=== PATIENT | female | born 1950 | race Caucasian/White ===

== ENCOUNTER 2019-04-23 11:23 | Inpatient (IN) | payer OTHER ==
--- NOTE | 2019-04-23 11:29 | ED ---
HPI Cardiac - HPI Summary HPI Summary: STEMI called overhead at 11:08, ETA 25 minutes. This pt is a 68 y/o female presenting to [facility] via EMS for a possible STEMI. Pt reports she has had chest pain since 2 days ago (04/21/19). She states chest pain is still present today and it has worsened. Pt currently rates her pain 4/ 10 in severity. STEMI was called from field. PMHx includes aortic valve "doesn't close." - History of Current Complaint Stated Complaint: POSSIBLE STEMI Hx Obtained From: Patient Hx Last Menstrual Period: age 36 Onset/Duration: Started Days Ago - 2, Still Present Timing: Lasting Days - 2 Current Severity: Moderate Pain Intensity: 4 Pain Scale Used: 0-10 Numeric Chest Pain Location: Diffuse Chest Pain Radiates: No Aggravating Factor(s): Nothing Alleviating Factor(s): Nothing Associated Signs and Symptoms: Positive: Chest Pain. Negative: Shortness of Breath, Fever, Chills - Allergy/Home Medications Allergies/Adverse Reactions: Allergies Allergy/AdvReac Type Severity Reaction Status Date / Time MS Cefaclor [From Ceclor] Allergy Intermediate Hives Verified 06/10/15 11:46 MS Erythromycin Allergy Intermediate Hives Verified 06/10/15 11:46 [Erythromycin] MS Penicillins [Penicillins] Allergy Intermediate Hives Verified 06/10/15 11:46 MS Sodium [Sodium] Allergy Intermediate Hives Verified 06/10/15 11:46 MS Tetracyclines & Related Allergy Hives Verified 06/10/15 11:46 [Tetracyclines & Related] Home Medications: Home Medications Albuterol HFA INHALER* [Ventolin HFA Inhaler*] 2 puff INH Q4H PRN 04/23/19 [ History Confirmed 04/23/19] Albuterol/Ipratropium NEB.NICOLE* [Duoneb (Albuterol 2.5 MG/Ipratropium 0.5 MG)] 1 neb INH Q6H PRN 04/23/19 [History Confirmed 04/23/19] Aspirin EC TAB* [Ecotrin EC Low Dose 81 MG*] 81 mg PO DAILY 04/23/19 [History Confirmed 04/23/19] Diclofenac Sodium EC TAB* [Voltaren EC TAB*] 75 mg PO BID 04/23/19 [History Confirmed 04/23/19] Dulaglutide (NF) [Trulicity (NF)] 0.75 mg SUBCUT WEEKLY 04/23/19 [History Confirmed 04/23/19] Fluticasone NASAL SPRAY 50MCG* [Flonase NASAL SPRAY 50MCG*] 2 spray BOTH NARES DAILY 04/23/19 [History Confirmed 04/23/19] Levofloxacin TAB* [Levaquin TAB*] 500 mg PO DAILY 04/23/19 [History Confirmed ] LoraTADine TAB(NF) [Claritin 10 MG TAB(NF)] 10 mg PO DAILY 04/23/19 [History Confirmed 04/23/19] Melatonin 10 mg PO BEDTIME 04/23/19 [History Confirmed 04/23/19] Pantoprazole TAB * [Protonix TAB*] 40 mg PO DAILY 04/23/19 [History Confirmed ] traMADol TAB* [Ultram*] 25 - 50 mg PO Q6HR PRN 04/23/19 [History Confirmed 04/23] PMH/Surg Hx/FS Hx/Imm Hx Endocrine/Hematology History: Reports: Hx Diabetes Cardiovascular History: Reports: Hx Hypertension, Other Cardiovascular Problems/ Disorders - AORTIC VALVE PROBLEM Respiratory History: Reports: Hx Chronic Obstructive Pulmonary Disease (COPD) - Surgical History Surgery Procedure, Year, and Place: R knee x2, tubal, gallbladder - Family History Known Family History: Positive: Cardiac Disease Family History: Asthma. Polio. - Social History Alcohol Use: None Substance Use Type: Reports: None Smoking Status (MU): Light Every Day Tobacco Smoker Type: Cigarettes Amount Used/How Often: 1/2 pack Length of Time of Smoking/Using Tobacco: 54 Years Have You Smoked in the Last Year: Yes Review of Systems Negative: Fever, Chills Negative: Erythema Negative: Sore Throat Positive: Chest Pain Negative: Shortness Of Breath, Cough Negative: Abdominal Pain, Vomiting, Nausea Negative: dysuria, hematuria Negative: Myalgia, Edema Negative: Rash Neurological: Other - NEGATIVE: dizziness All Other Systems Reviewed And Are Negative: Yes Physical Exam - Summary Physical Exam Summary: Constitutional: Well-developed, Well-nourished, Alert. (-) Distressed Skin: Warm, Dry HENT: Normocephalic; Atraumatic Eyes: Conjunctiva normal Neck: Musculoskeletal ROM normal neck. (-) JVD, (-) Stridor, (-) Tracheal deviation Cardio: Rhythm regular, rate normal, Heart sounds normal; Intact distal pulses; The pedal pulses are 2+ and symmetric. Radial pulses are 2+ and symmetric. (-) Murmur Pulmonary/Chest wall: Effort normal. (-) Respiratory distress, (-) Wheezes, (-) Rales. (+) Mild crackles in the bases. Abd: Soft, (-) Tenderness, (-) Distension, (-) Guarding, (-) Rebound Musculoskeletal: (-) Edema Lymph: (-) Cervical adenopathy Neuro: Alert, Oriented x3 Psych: Mood and affect Normal Triage Information Reviewed: Yes Vital Signs Reviewed: Yes Diagnostics - Laboratory Result Diagrams: 04/23/19 11:30 Lab Statement: Any lab studies that have been ordered have been reviewed, and results considered in the medical decision making process. Disposition - Course Assessment/Plan: Pt is a 68 y/o female presenting to [facility] via EMS for a possible STEMI. Pt reports she has had chest pain since 2 days ago (04/21/19). She states chest pain is still present today and worsening. Pt currently rates her pain 4/10 in severity. STEMI was called from field. Dr. Frost and Dr. Alvarez immediately at beside upon arrival at 11:23. EKG strip from EMS shows positive inferior wall W[place]. Patient is going straight to the distillery laborer without being placed in the ED room. ED bypass. Patient does not qualify for critical care time, patient has been in the ED for less than 30 minutes. - Diagnoses Provider Diagnoses: STEMI (ST elevation myocardial infarction) During the Visit The Following Alert/Code Occurred: STEMI - overhead at 11:08, ETA 25 minutes. Discharge - Sign-Out/Discharge Documenting (check all that apply): Patient Departure - Patient straight to distillery laborer All imaging exams completed and their final reports reviewed: No Studies Patient Received Moderate/Deep Sedation with Procedure: No - Discharge Plan Condition: Stable Disposition: ADMITTED TO [facility] - Attestation Statements Document Initiated by Scribe: Yes Documenting Scribe: Nithya Elizabeth Provider For Whom Scribe is Documenting (Include Credential): Jerad Alvarez MD Scribe Attestation: Nithya Child, scribed for Jerad Alvarez MD on 04/23/19 at 1207. Status of Scribe Document: Ready
[2019-04-23] MEDS ORDERED: Heparin(*) 1000 UNIT/ML 10 ML VIAL CATH LAB IV ONE ×2 (11:32→11:34)
[2019-04-23] MEDS ORDERED: Iohexol 350 (CONTRAST) 200 ML MDV IV ONE ×2 (11:34→12:20)
[2019-04-23] MEDS ORDERED: VERAPAMIL 2.5 MG/ML 2 ML VIAL ** 5 mg/2 ml ONE (11:34)
[2019-04-23] MEDS ORDERED: Midazolam* 1 MG/ML 5 ML VIAL (5 MG) ONE (11:34)
[2019-04-23] MEDS ORDERED: fentaNYL* 50 MCG/ML 2 ML VIAL (100 MCG VIAL) ONE (11:34)
[2019-04-23] MEDS ORDERED: nitroGLYCERIN DRIP* 25,000 MCG/250 ML BTL ONE (11:34)
[2019-04-23] MEDS ORDERED: Lidocaine 1% INJ* 10 MG/ML 30 ML SDV ONE (11:34)
[2019-04-23] MEDS ORDERED: Ticagrelor* 90 MG TAB PO ONE (11:37)
[2019-04-23 11:56] LABS: Hematocrit 43 % (35-47); Hemoglobin 14.5 g/dL (12.0-16.0); Mean Corpuscular HGB Conc 34 g/dL (31-36); Mean Corpuscular Hemoglobin 30 pg (27-31); Mean Corpuscular Volume 90 fL (80-97); Mean Platelet Volume 10.5 fL (7.4-10.4); Platelet Count 240 10^3/uL (150-450); Red Blood Count 4.84 10^6 /uL (3.70-4.87); Red Cell Distribution Width 14 % (10-15); White Blood Count 18.5 10^3/uL (3.5-10.8)
[2019-04-23 12:04] LABS: Activated Partial Thrombo Time 34.1 seconds (26.0-38.0); INR 1.04 (0.82-1.09)
[2019-04-23 12:23] LABS: Albumin 3.8 g/dL (3.2-5.2); Albumin/Globulin Ratio 1.4 (1-3); BUN/Creatinine Ratio 20.8 (8-20); EGFR African American 90.2 (>60); EGFR Non-African American 74.5 (>60); Globulin 2.8 g/dL (2-4); Potassium 4.2 mmol/L (3.5-5.0); Total Bilirubin 0.5 mg/dL (0.2-1.0); Total Protein 6.6 g/dL (6.4-8.9)
[2019-04-23 12:25] LABS: Myoglobin 84.8 ng/mL (14.3-65.8)
[2019-04-23 12:26] LABS: CKMB ng/mL 76.1 ng/mL (0.6-6.3)
[2019-04-23 12:35] LABS: ABS Basophils 0.1 10^3/ul (0-0.2); ABS Eosinophils 0.2 10^3/ul (0-0.6); ABS Lymphocytes 2.2 10^3/ul (1.0-4.8); ABS Monocytes 1.7 10^3/ul (0-0.8); ABS Neutrophils 14.4 10^3/ul (1.5-7.7); Eosinophil % 1.1 %; Lymphocyte % 11.6 %
[2019-04-23 12:44] LABS: Troponin I 13.32 ng/mL (<0.04)
[2019-04-23] MEDS: NS 0.9% 1000 ML** 1,000 ML IV SCH ×2 (12:50→18:26)
[2019-04-23] MEDS ORDERED: Nitroglycerin TAB 0.4 MG* 0.4 MG TAB SL PRN (12:56)
[2019-04-23] MEDS: Metoprolol Tartrate TAB* 25 MG PO SCH ×3 (14:04→23:17)
[2019-04-23] MEDS: Atorvastatin* 80 MG TAB PO ONE ×2 (14:04→14:07)
--- NOTE | 2019-04-23 14:38 | HP ---
CC: MELISSA Espinoza, [facility], [place], [place] * CC: Ellie Vilchis MD, [facility].* ADMISSION HISTORY AND PHYSICAL: DATE OF ADMISSION: 04/23/19 CHIEF COMPLAINT: The patient with chest discomfort since last evening. HISTORY OF PRESENT ILLNESS: The patient is a 68-year-old female with no prior known history of coronary artery disease. Over the past several days, she has had chest tightness sensation radiating to her left shoulder. She has had some nauseousness without significant diaphoresis. She had shortness of breath, which she has chronically from her underlying severe chronic obstructive lung disease. She states in general, her symptoms seemed to be worse in the evening hours, but last night it again came on and worsened again. This morning, it was still present and she ended up calling the EMS. EMS presented and found on EKG of the patient to have ST-segment elevation in the inferior leads. There were already some Q waves formed, but still preserved R-waves present. There was mild ST segment depression in I and aVL and the early precordial leads. A STEMI alert was called. She was brought to [facility] and I saw her as a potential STEMI ER bypass situation. She was still having active symptoms , but her hemodynamics were stable. I examined her and reviewed the risks and benefits with her cardiac catheterization. She understood and wished to proceed. Basic cardiac risk factors that were able to obtained by her included a history of hypertension, hyperlipidemia, and a smoking history . There was reportedly a family history of a father who had heart attack young in life. PAST MEDICAL HISTORY: As above, including COPD SOCIAL HISTORY: The patient is an active cigarette smoker. REVIEW OF SYSTEMS: Pertinent to proceeding to the cardiovascular laboratory - the patient denied any history of prior stroke or TIA. She denied any history of kidney disease that she knew about. She denied any history of dye allergy and she denied any history of hematochezia, hematemesis, or hematuria. FAMILY HISTORY: Pertinent for father history of CAD as above. PHYSICAL EXAMINATION GENERAL: When I saw her in the emergency room revealed the patient still with a [id number] chest discomfort that seemed to be somewhat better since she got nitroglycerin by the paramedics. NECK: Supple. I could not appreciate definitive increased JVP. LUNGS: Chest had decreased breath sounds bilaterally, marked in nature, with the question of a minimal wheeze. HEART: Regular rate and rhythm. In the emergency room, it was difficult to auscultate for a significant murmur. As such a murmur could not be ruled out. A question of a soft systolic murmur was noted. ABDOMEN: Soft and nontender. EXTREMITIES: Without cyanosis or significant pitting edema. Peripheral pulses were intact. The right radial artery pulse was present as well. NEURO: The patient is alert and oriented with normal mentation. MUSCULOSKELETAL: The patient moves all extremities appropriate. PSYCHOLOGICAL: The patient with appropriate affect for her current condition. DIAGNOSTIC STUDIES/LAB DATA: Electrocardiogram from the emergency room revealed sinus rhythm. Pulse rate in the 90s. There are mild ST segment elevations in 2, 3, aVF that do meet criteria for a ST elevation myocardial infarction with Q waves already developed, but still preserved R waves noted with mild ST segment depression in 1, aVL, and V2 and V3. Laboratory results pending at this point. OVERALL ASSESSMENT: Ms. Paris presents in the throes of a probably late presentation inferior and posterior wall myocardial infarction with continued ongoing symptoms at this point in time. Given the fact that she has preserved R waves still to some degree and ongoing symptoms, we will proceed to the cardiovascular laboratory. I explained at length the risks and benefits to her , she understood them and wished to proceed. The patient will receive 4000 units of heparin immediately on presentation to the rn cardiac cath in addition to 180 mg of Brilinta. She has already received aspirin therapy. Further management will be made pending the results of the cardiac catheterization. [id number]/CPS #: [id number] MTDD
[2019-04-23] MEDS ORDERED: NF:Dulaglutide (NF) 0.75 MG/0.5 ML SYRINGE SUBCUT SCH (16:00)
[2019-04-23 17:05] LABS: Urine Appearance Cloudy; Urine Bilirubin Negative (Negative); Urine Blood Negative (Negative); Urine Color Yellow; Urine Glucose 3+(>=500 mg/dL) (Negative); Urine Ketones 1+ (Negative); Urine Nitrite Negative (Negative); Urine Protein Negative (Negative); Urine Urobilinogen Negative (Negative)
[2019-04-23 17:43] LABS: Creatine Kinase 882 U/L (10-223)
[2019-04-23 17:47] LABS: Troponin I 44.95 ng/mL (<0.04)
[2019-04-23 17:48] LABS: CKMB ng/mL 75.7 ng/mL (0.6-6.3)
[2019-04-23] MEDS ORDERED: NS 0.9% 250 ML* 250 ML IV ONE (18:00)
[2019-04-23] MEDS: Ticagrelor* 90 MG TAB PO SCH (21:04)
[2019-04-23 23:55] LABS: Creatine Kinase 576 U/L (10-223)
[2019-04-24 00:09] LABS: Troponin I 31.15 ng/mL (<0.04)
[2019-04-24 06:08] LABS: Hematocrit 40 % (35-47); Hemoglobin 13.4 g/dL (12.0-16.0); Mean Corpuscular HGB Conc 33 g/dL (31-36); Mean Corpuscular Hemoglobin 30 pg (27-31); Mean Corpuscular Volume 90 fL (80-97); Red Blood Count 4.45 10^6 /uL (3.70-4.87); Red Cell Distribution Width 14 % (10-15); White Blood Count 17.6 10^3/uL (3.5-10.8)
[2019-04-24 06:20] LABS: ALT 16 U/L (7-52); AST 55 U/L (13-39); Albumin 3.7 g/dL (3.2-5.2); Albumin/Globulin Ratio 1.2 (1-3); Alkaline Phosphatase 76 U/L (34-104); Anion Gap 8 mmol/L (2-11); BUN/Creatinine Ratio 20.5 (8-20); Blood Urea Nitrogen 15 mg/dL (6-24); CO2 Carbon Dioxide 24 mmol/L (22-32); Calcium 8.8 mg/dL (8.6-10.3); Chloride 104 mmol/L (101-111); Cholesterol 123 mg/dL; Creatine Kinase 433 U/L (10-223); EGFR African American 95.9 (>60); EGFR Non-African American 79.3 (>60); Globulin 3.1 g/dL (2-4); Glucose 133 mg/dL (70-100); HDL Cholesterol 32.3 mg/dL; LDL Cholesterol 52 mg/dL; Potassium 3.6 mmol/L (3.5-5.0); Sodium 136 mmol/L (135-145); Total Protein 6.8 g/dL (6.4-8.9); Triglycerides 196 mg/dL
[2019-04-24 06:26] LABS: CKMB ng/mL 23.7 ng/mL (0.6-6.3)
[2019-04-24 06:30] LABS: Troponin I 19.05 ng/mL (<0.04)
[2019-04-24 06:58] LABS: ABS Basophils 0.1 10^3/ul (0-0.2); ABS Eosinophils 0.3 10^3/ul (0-0.6); ABS Lymphocytes 4.1 10^3/ul (1.0-4.8); ABS Monocytes 1.9 10^3/ul (0-0.8); ABS Neutrophils 11.2 10^3/ul (1.5-7.7); Eosinophil % 1.5 %; Lymphocyte % 23.5 %; Nucleated Red Blood Cells % 0.1
[2019-04-24 07:03] LABS: Mean Platelet Volume 10.1 fL (7.4-10.4); Platelet Count 237 10^3/uL (150-450)
[2019-04-24] MEDS ORDERED: Perflutren Lipid Microsphere* 3 ML VIAL ONE (07:48)
[2019-04-24] MEDS ORDERED: LORATADINE 10 MG PO SCH (09:00)
[2019-04-24] MEDS ORDERED: PTO:Dulaglutide (NF) 0.75 MG/0.5 ML SYRINGE SUBCUT SCH (09:00)
[2019-04-24] MEDS: Fluticasone NASAL SPRAY 50MCG* 16 gm SPRAY BTL BOTH NARES SCH (09:10)
[2019-04-24] MEDS: Aspirin 81 mg CHEW TAB* 81 MG TAB.CHEW PO SCH (09:10)
[2019-04-24] MEDS: Metoprolol Succinate XL TAB* 25 MG PO SCH (09:10)
[2019-04-24] MEDS: Ticagrelor* 90 MG TAB PO SCH ×2 (09:10→21:01)
[2019-04-24] MEDS: Cetirizine* 10 MG TAB PO SCH (09:10)
[2019-04-24] MEDS: Pantoprazole TAB * 40 MG TAB PO SCH (09:11)
--- NOTE | 2019-04-24 10:43 | ECHO ---
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 History: Aortic regurgitation. Risk factors: Current tobacco use. Hypertension. Dyslipidemia. Labs, prior tests, procedures, and surgery: Catheterization (04/23/2019). There was a stenosis which was treated with a stent. Conclusions Summary: 1. Left ventricle: The cavity size is normal. Wall thickness is mildly increased. Systolic function is at the lower limits of normal. The estimated ejection fraction is 45-50%. Hypokinesis of the inferior myocardium. Hypokinesis of posterior myocardium. 2. Regional wall motion abnormality: Severe hypokinesis of the apical inferior myocardium; mild hypokinesis of the mid inferior and mid inferolateral myocardium. 3. Right ventricle: Systolic function is normal. 4. Mitral valve: There is mild regurgitation. 5. Aortic valve: There is mild regurgitation. 6. Tricuspid valve: There is trivial regurgitation. 7. Pericardium, extracardiac: There is no significant pericardial effusion. 8. Compared to study of 04/25/18, the inferior wall motion abnormalitiy is new. Study data: Transthoracic echocardiogram. Procedure: Transthoracic echocardiography was performed. Image quality was adequate. Intravenous Definity , 2 mlswas administered. Image enhancement administered by Selma Dean RN. Complete 2D, spectral Doppler, and color flow Doppler. Location: ICU Patient status: Inpatient. Patient room number: 5. Rhythm: Normal sinus rhythm. Findings Left ventricle: The cavity size is normal. Wall thickness is mildly increased. Systolic function is at the lower limits of normal. The estimated ejection fraction is 45-50%. Regional wall motion abnormalities: Hypokinesis of the inferior myocardium. Hypokinesis of posterior myocardium. Severe hypokinesis of the apical inferior myocardium; mild hypokinesis of the mid inferior and mid inferolateral myocardium. There is no consistent Doppler evidence of clinically significant diastolic dysfunction. Right ventricle: The cavity size is normal. Systolic function is normal. Left atrium: The atrium is normal in size. Right atrium: The atrium is normal in size. Mitral valve: The annulus is mildly calcified. The leaflets are normal thickness. There is no evidence of stenosis. There is mild regurgitation. Aortic valve: The valve is probably trileaflet. The leaflets are normal thickness. There is no evidence of stenosis. There is mild regurgitation. Tricuspid valve: The leaflets are normal thickness. There is no evidence of stenosis. There is trivial regurgitation. Pulmonic valve: Not well visualized. There is no significant regurgitation. Aorta: The aortic root is not dilated. Pericardium: There is no significant pericardial effusion. Pulmonary arteries: Not well visualized. Systolic pressure can not be accurately estimated. Systemic veins: Inferior vena cava: The vessel is normal in size. The respirophasic diameter changes are blunted (< 50%). Measurements Left ventricle Value Ref Aortic valve continued Value Ref ASTER, LAX 4.1 cm 3.8 - 5.2 Peak grad, S 11.0 mm Hg ---- ESD, LAX (H) 3.6 cm 2.2 - 3.5 AR peak v 3.22 m/sec ---- FS, LAX (L) 11 % 27 - 45 AR PHT 500 ms ---- PW, ED, LAX (H) 1.1 cm 0.6 - 0.9 AR peak grad 41 mm Hg ---- EF (L) 25 % 54 - 74 E', lat jones, TDI (L) 5.9 cm/sec >=10.0 Mitral valve Value Re f E/e', lat jones, 15 Peak E 0.91 m/sec ---- TDI Peak A 1.18 m/sec ---- E', med jones, TDI (L) 6.3 cm/sec >=7.0 Decel time 156 ms -- -- E/e', med jones, 14 PHT 72 ms ---- TDI Mean grad, D 3.0 mm Hg ---- E', avg, TDI 6.1 cm/sec Peak grad, D 8.0 mm Hg ---- E/e', avg, TDI (H) 15 <=14 Peak E/A ratio 0.8 -- -- MVA, PHT 3.1 cm^2 ---- LVOT Value Ref Peak carloz, S 0.92 m/sec Pulmonic valve Value Ref Mean grad, S 2 mm Hg Peak v, S 0.69 m/sec ---- Peak grad, S 2.0 mm Hg ---- Ventricular septum Value Ref IVS, ED (H) 1.2 cm 0.6 - 0.9 Aortic root Value Ref Root diam 2.8 cm <3.9 Right ventricle Value Ref ASTER, LAX 2.6 cm Ascending aorta Value Ref ASTER minor ax, A4C 1.9 cm 1.9 - 3.5 AAo AP diam, S 2.7 cm ---- mid Aortic arch Value Ref Left atrium Value Ref Arch diam 2.6 cm ---- AP dim, ES 2.90 cm 2.70 - 3.80 Decending aorta Value Ref ML dim, A4C 3.8 cm Kelley peak carloz 0.65 m/sec ---- SI dim, A4C 4.3 cm Vol/bsa, ES, A/L 29 ml/m^2 16 - 34 Inferior vena cava Value Ref Diam 1.9 cm ---- Right atrium Value Ref SI dim, ES 4.1 cm 3.4 - 5.3 Pulmonary veins Value Ref ML dim, ES, A4C (L) 2.5 cm 2.6 - 4.4 Peak v, S 0.5 m/sec ---- Estimated RAP 3 mm Hg Peak v, D 0.33 m/sec ---- Peak S/D ratio 1.5 ---- Aortic valve Value Ref A rev duration 114 ms ---- Jones diam, ED 2.2 cm Peak v, S 1.64 m/sec VTI, S 31.1 cm Mean grad, S 5.0 mm Hg Legend: (L) and (H) nael values outside specified reference range. Prepared and electronically signed by Tuan Sanchez MD 04/24/2019 10:43
--- NOTE | 2019-04-24 15:18 | CATH ---
CC: MELISSA Espinoza, [facility] [place], [place]; Ellie Vilchis MD, [facility]* CARDIAC CATHETERIZATION REPORT: DATE OF PROCEDURE: 04/23/19 - Inpatient, room 432-01. REASON FOR THE CARDIAC CATHETERIZATION: The patient presents with a late presentation inferoposterior wall ST elevation myocardial infarction with ongoing symptoms. PROCEDURE: Coronary arteriography, intervention into distal circumflex with thrombectomy and placement of a 2.5 x 18 mm long Orsiro Sirolimus drug-eluting stent post dilated to 2.85 mm, left heart catheterization, left ventriculography. CONSENT: The patient was interviewed and examined in the emergency room where the risks and benefits were explained. She understood them and wished to proceed. APPROACH ATTEMPTED: The right radial artery was assessed in the catheterization laboratory and found to be of an appropriate size for approach and as such this was the approach utilized. PRECARDIAC CATHETERIZATION LABORATORY RESULTS: Pending at the time of start of the case. EQUIPMENT UTILIZED: 1. Right radial artery sheath was a 6-Faroese Glidesheath Slender. 2. Diagnostic coronary catheter was a 5-Faroese TIG4 catheter. 3. The exchange diagnostic guidewire was a Joy curved 260-cm length guidewire. 4. The guiding catheter was a VL 3.5 curved 6-Faroese Runway guide catheter. 5. The thrombectomy device utilized: A Pronto V3 extraction catheter 6-Faroese. 6. The post stent deployment dilatation balloon catheter was a NC Emerge 2.75 x 8 mm long catheter. 7. Interventional guidewire utilized was a 300 cm length AllStar guidewire. 8. Left heart catheterization catheter was a 5-Faroese TIG short radial catheter. MEDICATIONS: Medications given in the lab assistant: 5000 units of heparin, 180 mg of Brilinta orally. The patient had already received 325 mg of aspirin. She received a radial artery cocktail with 300 mcg of nitroglycerin, 3 mg of verapamil. The patient received 0.5 mg of Versed and also intracoronary nitroglycerin. DESCRIPTION OF PROCEDURE: The patient was brought to the cardiac catheterization lab doing an ED bypass. A formal time-out was performed. She was prepped and draped in sterile fashion, and under ultrasound guidance, the right radial artery was cannulated and the sheath was placed. Coronary arteriography was performed and the decision was then made to intervene in the totally occluded mid to distal circumflex artery. Thrombectomy was performed followed by stent deployment and post deployment dilatations utilizing the catheters described above. Following this, a left heart catheterization was performed and left ventriculography was performed utilizing a total of 24 cc of Omnipaque dye at a rate of 12 cc per second. The total contrast used was 165 cc of Omnipaque dye. The radiation exposure included 9.7 minutes of fluoro time. The air kerma was 881 mGy. The DAP radiation was 5416 microgray/m2. RESULTS: HEMODYNAMIC DATA: Left heart catheterization - revealed central aortic pressure 108/61 with mean 83. Left ventricular pressure 109 over left ventricular end diastolic pressure of 19. LEFT VENTRICULOGRAPHY: Performed in the ENRIQUEZ projection reveals severe hypokinesis of the mid toward apical inferior wall with preservation of the apex, the anterior wall and the proximal inferior wall. Overall ejection fraction is estimated at 40% to 45%. CORONARY ARTERIOGRAPHY: A. Left coronary artery: 1. Left main - virtual separate ostium for the LAD and circumflex with a very short left main. 2. Left anterior descending artery. The proximal portion of the left anterior descending artery had an eccentric lesion, which appeared to have a narrowing of 35% to 40%. The mid portion of left anterior descending artery had a narrowing of 55% to 60% noted. The left anterior descending artery traversed to the apical region and minimally on to the distal inferior wall. Of note, collateralization was seen filling retrograde to a low lying bifurcating obtuse marginal branch. The LAD supplied multiple diagonal branches that were somewhat small in caliber but no focal critical stenosis seen. 3. Circumflex artery - a nondominant vessel supplying a high first obtuse marginal branch. This was followed by a second thin obtuse marginal branch. A third and fourth obtuse marginal branch was noted and at the origin of the third obtuse marginal branch, there was a total occlusion of the circumflex artery. There was already ostial narrowing of this small caliber fourth obtuse marginal branch. B. Right coronary artery: The right coronary artery is a dominant vessel supplying the PDA and very small thread like posterior left ventricular branch. There is diffuse disease seen throughout the proximal and mid portion with areas of luminal reduction as much as 40% to 45%. The right coronary artery had multiple acute marginal branches with 2 mid acute marginal branches, which supplied part of the inferior wall. Of note, just prior to the PDA was a 45% narrowing, in caliber the vessel equal to the size of the PDA itself which was a small caliber vessel. INTERVENTION INTO TOTALLY OCCLUDED MID TO DISTAL CIRCUMFLEX: Successful thrombectomy and placement of a 2.5 x 18 mm long drug-eluting stent post dilated to 2.85 mm with SHANELLE 3 flow. No dissection seen and 5% to 10 % narrowing residual stenosis left. Of note, there was compromise to the ostium of the fourth obtuse marginal branch but SHANELLE 3 flow was noted throughout this vessel. The caliber was clearly less than 2 mm of this vessel. Once opened, the continuation of the circumflex supplied a trifurcating low lying obtuse marginal branch supplying the inferior to inferior low posterior apical region. OVERALL ASSESSMENT: Successful intervention into totally occluded mid to distal circumflex with placement of drug-eluting stent as described. Moderate disease elsewhere without critical stenosis present. Medical management will be pursued with dual antiplatelet therapy, statin therapy in addition to aggressive recommendations toward complete smoking cessation in order to avoid compromise to her coronary vessels. Further ongoing cardiac evaluation will be through the patient's primary bulk folder, Dr. Darlyn [place] in [place], [place]. [id number] #: [id number] MTDRonnell
[2019-04-24] MEDS: CMCS: Simvastatin TAB(NF) 20 MG TAB PO SCH (17:12)
[2019-04-25 05:45] LABS: BUN/Creatinine Ratio 23.6 (8-20); Calcium 9.2 mg/dL (8.6-10.3); EGFR African American 97.5 (>60); EGFR Non-African American 80.6 (>60); Potassium 3.8 mmol/L (3.5-5.0)
[2019-04-25] MEDS: Cetirizine* 10 MG TAB PO SCH (07:22)
[2019-04-25] MEDS: Pantoprazole TAB * 40 MG TAB PO SCH (07:22)
[2019-04-25] MEDS: Aspirin 81 mg CHEW TAB* 81 MG TAB.CHEW PO SCH (07:22)
[2019-04-25] MEDS: Fluticasone NASAL SPRAY 50MCG* 16 gm SPRAY BTL BOTH NARES SCH (07:23)
[2019-04-25] MEDS: PTO:DAPAGLIFLOZIN 10 MG TAB (NF) PO SCH (07:23)
[2019-04-25] MEDS: Ticagrelor* 90 MG TAB PO SCH ×2 (07:23→20:48)
[2019-04-25] MEDS: Metoprolol Succinate XL TAB* 25 MG PO SCH (07:23)
[2019-04-25] MEDS: Enoxaparin(*) 30 MG/0.3 ML SYR SUBCUT SCH (09:42)
[2019-04-25] MEDS: CMCS: Simvastatin TAB(NF) 20 MG TAB PO SCH (17:23)
[2019-04-26 07:45] VITALS: BP 109/62
[2019-04-26] MEDS: Metoprolol Succinate XL TAB* 25 MG PO SCH (07:52)
[2019-04-26] MEDS: Enoxaparin(*) 30 MG/0.3 ML SYR SUBCUT SCH (07:52)
[2019-04-26] MEDS: Aspirin 81 mg CHEW TAB* 81 MG TAB.CHEW PO SCH (07:52)
[2019-04-26] MEDS: Pantoprazole TAB * 40 MG TAB PO SCH (07:52)
[2019-04-26] MEDS: Cetirizine* 10 MG TAB PO SCH (07:52)
[2019-04-26] MEDS: Fluticasone NASAL SPRAY 50MCG* 16 gm SPRAY BTL BOTH NARES SCH (07:52)
[2019-04-26] MEDS: Ticagrelor* 90 MG TAB PO SCH (07:52)
[2019-04-26] MEDS: PTO:DAPAGLIFLOZIN 10 MG TAB (NF) PO SCH (07:55)
[2019-04-26] MEDS ORDERED: Acetaminophen TAB* 325 MG PO PRN (08:10)
--- NOTE | 2019-04-26 10:02 | DS ---
CC: Dr. Ellie Vilchis, Core Shaper in [facility]; MELISSA Espinoza in [facility] in [place], [place]* DISCHARGE SUMMARY: DATE OF ADMISSION: 04/23/19 DATE OF DISCHARGE: 04/26/19 FINAL DIAGNOSIS: Late presentation ST elevation inferior/posterior wall myocardial infarction. SECONDARY DIAGNOSES: 1. Hypertension. 2. Hyperlipidemia. 3. Smoking abuse. 4. Chronic obstructive lung disease. 5. Arthritis. 6. Non-insulin requiring diabetes mellitus. MEDICATIONS AT THE TIME OF DISCHARGE: Include: 1. Albuterol inhaler 2 puffs q.4 hours. 2. Aspirin 81 mg a day. 3. Dapagliflozin 5 mg daily(She will restart this if her fingersticks show her glucose is increasing). 4. Trulicity 0.75 mg subcu on Tuesdays. 5. Fluticasone spray 2 sprays in both nostrils. 6. Loratadine 10 mg daily. 7. Pantoprazole 40 mg a day. 8. Metoprolol Succinate (new medication) 25 mg a day. 9. Nitroglycerine sublingually 0.4 mg (new medication). 10. Simvastatin 80 mg qd. (new dose). 11. Ticagrelor 90 mg b.i.d. (new medication). HOSPITAL COURSE: The patient is a 68-year-old female who came to [facility] in a late presentation of an inferior wall myocardial infarction with symptoms probably at least greater than 12 hours old. She continued to have symptoms, and EKG by EMS demonstrated ST segment elevation in the inferior leads with still R waves present, but mild Q waves already developing. She underwent an emergency room bypass and was brought to the cardiovascular laboratory. In the cardiovascular laboratory, she was found to have a totally occluded [id number] circumflex supplying a trifurcating low-lying obtuse marginal branch to the posterior inferior wall. That underwent thrombectomy and was stented with a 2.5 x 18 mm long drug-eluting stent and postdilated to 2.85 mm. Of note, she also was noted to have an eccentric 35 to 40% lesion seen in the proximal LAD and the mid portion of the LAD had a 55 to 60% blockage. The circumflex otherwise had ostial narrowing of a very small caliber fourth obtuse marginal branch. Postintervention, there was a significant narrowing of that; however, there was SHANELLE-3 flow. Because the size was clearly under 1.7 mm, this was not intervened on. It subtended a small area of myocardium. The right coronary artery had areas of 40 to 45% narrowing in the proximal and mid portion and just prior to the PDA a 45% narrowing, which actually then led to the PDA which is of equal caliber to the 45% narrowing. During the hospital course, an echocardiogram revealed an overall EF of 45 to 50 % with hypokinesis of the inferior wall, and hypokinesis of the posterior wall, severe hypokinesis of the apical inferior wall, and mild hypokinesis of the mid inferior and mid inferior lateral wall. There was noted to be mild mitral regurgitation and the report stated mild aortic regurgitation. During the course of the hospitalization, her cardiac enzymes on presentation showed a total CPK of 740 and MB of 76 and a troponin of 13.32. The next CPK after opening the aorta maria teresa slightly to 882 with an MB of 75.7, and a troponin that demonstrated washout of 44.95. All further enzymes were in a downward pattern. Of note, during the hospitalization, her glucoses were checked with her just on Trulicity and, in general, her fasting sugars ran in the 102 to 108 range. We held off restarting her Dapagliflozin at this time(she will monitor her fingersticks at home and restart it if they go up). She was up and about and eventually stable and discharged to home on 04/26/19. On the day of discharge, vital signs revealed blood pressure 109/62, pulse 81, respirations 18, O2 saturation 96% on room air. Neck was supple without increased JVP. Lungs were clear with no active rales, rhonchi or wheezes. Heart: Revealed a regular rate and rhythm. No significant systolic or diastolic murmurs. A question of a faint systolic murmur was noted. Abdomen: Soft, nontender. Extremities: Without edema. The right radial artery showed good antegrade flow, no swelling or tenderness. Neuro: The patient was alert and oriented with normal mentation. Musculoskeletal: The patient walked with her cane normally without difficulty. Psychological: The patient with normal affect. During the hospitalization, the patient received an education packet in addition to the stent card and received her one month free Brilinta, and should follow up with dual antiplatelet therapy for a year's time and aspirin 81 mg after that. Her cardiac care in general will be managed by Dr. Ellie Vilchis, who will be seeing the patient in the first week of May. Next week, my partner, Dr. Eleazar Klein will see the patient for evaluation of a wound check. Of note, her EKG on the day of discharge showed Q waves in 2, 3, aVF, with a small R-wave in aVF, a slightly larger R-wave in lead 2. There was nonspecific residual, minimal ST segment elevation in 2, 3, aVF with mild ST depression in aVL, V1 through V3 with T-wave inversion in V4, 5, and 6. Possibility of an inferior posterior aneurysm developing, focal in nature, may be the case. Further followup for this will be through Dr. Ellie Vilchis, the patient's primary director university. Of note, I did personally speak with Dr. Ellie Vilchis initially when the patient presented to get more of a history on the patient, and we have been sending all records to both Dr. Ellie Vilchis and MELISSA Espinoza at the [facility] in [place], [place] to keep them up-to- date. We personally e- mailed the CD of the echo and catheterization with the reports to Dr. Ellie Vilchis, and I provided the patient with another CD of the same echo and catheterization with reports for her to hand deliver to Dr. Ellie Vilchis in case she did not get them. At the time of discharge, the patient was in stable condition and was being discharged to home. [id number]/[facility] #: [id number] [facility]
== END 2019-04-26 10:16 | disposition home or self-care (01) | DRG 174 ==
LOC: ED 11:23 → CHICATH 11:23 → ICU 12:56 → MEDTELE 04-24 16:15
PROVIDERS: ADMIT Internal Medicine Cardiovascular Disease; ATTEND Internal Medicine Cardiovascular Disease
PROC: 02C03ZZ Extirpation of Matter from Coronary Artery, One Artery, Percutaneous Approach (ICD-10-PCS; 2019-04-23)
PROC: B2111ZZ Fluoroscopy of Multiple Coronary Arteries using Low Osmolar Contrast (ICD-10-PCS; 2019-04-23)
PROC: 4A023N7 Measurement of Cardiac Sampling and Pressure, Left Heart, Percutaneous Approach (ICD-10-PCS; 2019-04-23)
PROC: B2151ZZ Fluoroscopy of Left Heart using Low Osmolar Contrast (ICD-10-PCS; 2019-04-23)
PROC: 027034Z Dilation of Coronary Artery, One Artery with Drug-eluting Intraluminal Device, Percutaneous Approach (ICD-10-PCS; principal; 2019-04-23 09:30)
DX: I21.11 ST elevation (STEMI) myocardial infarction involving right coronary artery (principal); E11.9 Type 2 diabetes mellitus without complications; F17.210 Nicotine dependence, cigarettes, uncomplicated; I10 Essential (primary) hypertension; I25.10 Atherosclerotic heart disease of native coronary artery without angina pectoris; E78.5 Hyperlipidemia, unspecified; M19.90 Unspecified osteoarthritis, unspecified site; I08.0 Rheumatic disorders of both mitral and aortic valves; J44.9 Chronic obstructive pulmonary disease, unspecified; Z88.1 Allergy status to other antibiotic agents; Z88.0 Allergy status to penicillin; Z88.8 Allergy status to other drugs, medicaments and biological substances; Z90.49 Acquired absence of other specified parts of digestive tract; Z98.51 Tubal ligation status; Z82.49 Family history of ischemic heart disease and other diseases of the circulatory system; Z82.5 Family history of asthma and other chronic lower respiratory diseases; Z83.1 Family history of other infectious and parasitic diseases; Z79.82 Long term (current) use of aspirin; Z79.02 Long term (current) use of antithrombotics/antiplatelets
CPT/HCPCS: 36415; 71045; 76937; 80048; 80053; 80061; 81003; 82550; 82553; 83721; 83874; 83880; 84484; 85025; 85347; 85610; 85730; 86850; 86900; 86901; 87641; 93005; 93306; 99283; A9270-GY; C1725; C1757; C1769; C1887; C8929; C9606-LC; J1644; J1650; J2250; J3010

== ENCOUNTER 2019-05-04 19:52 | Observation (INO) | payer OTHER ==
--- NOTE | 2019-05-04 20:18 | ED ---
HPI Chest Pain - HPI Summary HPI Summary: This pt is a 68 y/o female presenting to [facility] via EMS for chest pain today. Pt describes substernal chest pressure as nonradiating and rated it 7/10 in severity. She notes this episode of chest pain lasted 10 minutes. Associated symptoms of diaphoresis, lightheadedness. Pt reports she felt SOB after her chest pain resolved. Pt notes she was sitting on a chair at onset of her symptoms. Currently she denies any chest pain. 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 No nitro. Hx of ME last week. Pt states her pain today is nothing like pain during her ME. Pt is taking her medications including Brilinta as prescribed. - History of Current Complaint Chief Complaint: EDChestPainROMI Time Seen by Provider: 05/04/19 20:03 Hx Obtained From: Patient Hx Last Menstrual Period: age 36 Onset/Duration: Started Hours Ago, Resolved Timing: Lasting Hours Initial Severity: Severe Current Severity: None Pain Intensity: 0 Pain Scale Used: 0-10 Numeric Chest Pain Location: Mid Sternal Chest Pain Radiates: No Character: Pressure/Squeezing - Pressure Aggravating Factor(s): Nothing Alleviating Factor(s): EMS Tx - aspirin Associated Signs and Symptoms: Positive: Chest Pain, Shortness of Breath, Lightheadedness, Diaphoresis. Negative: Fever - Additional Pertinent History Primary Care Physician: BUCKY - Allergy/Home Medications Allergies/Adverse Reactions: Allergies Allergy/AdvReac Type Severity Reaction Status Date / Time cefaclor [From [facility]] Allergy Intermediate Hives Verified 05/04/19 19:56 erythromycin base Allergy Intermediate Hives Verified 05/04/19 19:56 Penicillins Allergy Intermediate Hives Verified 05/04/19 19:56 sodium Allergy Intermediate Hives Verified 05/04/19 19:56 atorvastatin Allergy Altered Verified 05/04/19 19:56 Mental Status Tetracyclines Allergy Hives Verified 05/04/19 19:56 PMH/Surg Hx/FS Hx/Imm Hx Endocrine/Hematology History: Reports: Hx Diabetes Denies: Hx Anticoagulant Therapy, Hx Blood Disorders, Hx Blood Transfusions, Hx Bone Marrow Disease, Hx Systemic Lupus Erythematosus, Hx Sickle Cell Disease , Hx Thyroid Disease, Hx Anemia, Hx Unexplained Bleeding, Other Endocrine/ Hematological Disorders Cardiovascular History: Reports: Hx Hypercholesterolemia, Hx Hypertension, Hx Myocardial Infarction, Hx Valvular Heart Disease, Other Cardiovascular Problems/ Disorders - AORTIC VALVE PROBLEM Denies: Hx Aneurysm, Hx Angina, Hx Angioplasty, Hx Auto Implanted Cardiovert Defib, Hx Cardiac Arrest, Hx Cardiomegaly, Hx Congenital Heart Disease, Hx Congestive Heart Failure, Hx Coronary Artery Disease, Hx Deep Vein Thrombosis, Hx Embolism, Hx Hypotension, Hx Pacemaker/ICD, Hx Peripheral Vascular Disease, Hx Rheumatic Fever, Hx Syncope Respiratory History: Reports: Hx Asthma, Hx Chronic Obstructive Pulmonary Disease (COPD) Denies: Hx Chronic Bronchitis, Hx Cystic Fibrosis, Hx Lung Cancer, Hx Pleural Effusion, Hx Pneumonia, Hx Pulmonary Edema, Hx Pulmonary Embolism, Hx Seasonal Allergies, Hx Sleep Apnea, Other Respiratory Problems/Disorders GI History: Reports: Hx Gastroesophageal Reflux Disease Denies: Hx Cirrhosis, Hx Crohn's Disease, Hx Diverticulosis, Hx Gall Bladder Disease, Hx Gastrointestinal Bleed, Hx Hiatal Hernia, Hx Irritable Bowel, Hx Jaundice, Hx Obstructive Bowel, Hx Ileostomy, Hx Pyloric Stenosis, Hx Ulcer, Other GI Disorders Musculoskeletal History: Reports: Hx Arthritis - RHEUMATOID, Other Musculoskeletal History - FALL ON ICE, PAIN LT SIDE Denies: Hx Back Problems, Hx Bursitis, Hx Congenital Bone Abnormalities, Hx Fibromyalgia, Hx Gout, Hx Orthopedic Injury, Hx Osteoporosis, Hx Scoliosis, Hx Tendonitis Sensory History: Reports: Hx Contacts or Glasses Denies: Hx Cataracts, Hx Eye Injury, Hx Eye Prosthesis, Hx Glaucoma, Hx Legally Blind, Hx Macular Degeneration, Hx Vision Problem, Hx Deafness, Hx Hearing Aid, Hx Hearing Problem, Other Sensory Impairments Opthamlomology History: Reports: Hx Contacts or Glasses Denies: Hx Cataracts, Hx Eye Injury, Hx Eye Prosthesis, Hx Glaucoma, Hx Legally Blind, Hx Macular Degeneration, Hx Vision Problem, Other Sensory Impairments - Surgical History Surgery Procedure, Year, and Place: R knee x2, tubal, gallbladder Hx Anesthesia Reactions: No - Immunization History Date of Tetanus Vaccine: utd Date of Influenza Vaccine: fall 2017 Infectious Disease History: No Infectious Disease History: Denies: Hx Hepatitis, Hx Tuberculosis, Traveled Outside the [place] in Last 30 Days - Family History Known Family History: Positive: Cardiac Disease Family History: Asthma. Polio. - Social History Alcohol Use: None Substance Use Type: Reports: None Smoking Status (MU): Light Every Day Tobacco Smoker Type: Cigarettes Amount Used/How Often: 1/2 pack Length of Time of Smoking/Using Tobacco: 54 Years Have You Smoked in the Last Year: Yes Review of Systems Positive: Skin Diaphoresis. Negative: Fever Positive: Chest Pain Positive: Shortness Of Breath Neurological: Other - POSITIVE: lightheadedness All Other Systems Reviewed And Are Negative: Yes Physical Exam - Summary Physical Exam Summary: VITAL SIGNS: Reviewed. GENERAL: Patient is a well-developed and nourished female who is lying comfortable in the stretcher. Patient is not in any acute respiratory distress. HEAD AND FACE: No signs of trauma. No ecchymosis, hematomas or skull depressions. No sinus tenderness. EYES: PERRLA, EOMI x 2, No injected conjunctiva, no nystagmus. EARS: Hearing grossly intact. Ear canals and tympanic membranes are within normal limits. MOUTH: Oropharynx within normal limits. NECK: Supple, trachea is midline, no adenopathy, no JVD, no carotid bruit, no c- spine tenderness, neck with full ROM. CHEST: Symmetric, no tenderness at palpation LUNGS: Clear to auscultation bilaterally. No wheezing or crackles. CVS: Regular rate and rhythm, S1 and S2 present, no murmurs or gallops appreciated. ABDOMEN: Soft, non-tender. No signs of distention. No rebound no guarding, and no masses palpated. Bowel sounds are normal. EXTREMITIES: FROM in all major joints, no edema, no cyanosis or clubbing. NEURO: Alert and oriented x 3. No acute neurological deficits. Speech is normal and follows commands. SKIN: Dry and warm Triage Information Reviewed: Yes Vital Signs On Initial Exam: Initial Vitals Temp Pulse Resp BP Pulse Ox 97.8 F 75 16 116/70 99 05/04/19 19:54 05/04/19 19:54 05/04/19 19:54 05/04/19 19:54 05/04/19 19:54 Vital Signs Reviewed: Yes Diagnostics - Vital Signs Vital Signs Temp Pulse Resp BP Pulse Ox 05/04/19 19:54 97.8 F 75 16 116/70 99 - Laboratory Result Diagrams: 05/04/19 21:08 05/04/19 21:08 Lab Statement: Any lab studies that have been ordered have been reviewed, and results considered in the medical decision making process. - EKG 20:16 Cardiac Rate: NL - at 76 bpm EKG Rhythm: Sinus Rhythm Summary of EKG Findings: T wave inversion in the inferior leads with minimal ST elevation. No change from prior EKG on 04/26/19. Chest Pain Course/Dx - Course Assessment/Plan: Pt is a 68 y/o female presenting to [facility] via EMS for chest pain today. Pt describes substernal chest pressure as nonradiating and rating it 7/10 in severity. She notes this episode of chest pain lasted 10 minutes. Associated symptoms of diaphoresis, lightheadedness. EMS administered aspirin en route. Pt with hx of ME last week. EKG today shows normal sinus rhythm at 76 bpm with T wave inversion in the inferior leads with minimal ST elevation. No change from prior EKG on 04/26/19. Lab results remarkable for WBC of 13.7, troponin of 0.07, BNP of 249. Discussed the case with Dr. Giles, hospitalist, who accepted the pt for admission. - Diagnoses Provider Diagnoses: Chest pain - Provider Notifications Discussed Care Of Patient With: Teresa Giles - hospitalist Time Discussed With Above Provider: 21:52 Instructed by Provider To: Admit As Inpatient Discharge - Sign-Out/Discharge Documenting (check all that apply): Patient Departure - Admit to [facility] Patient Received Moderate/Deep Sedation with Procedure: No - Discharge Plan Condition: Stable Disposition: ADMITTED TO [facility] Referrals: Emily [facility],Rocio [Nurse Practitioner] - - Attestation Statements Document Initiated by Scribe: Yes Documenting Scribe: Nithya Elizabeth Provider For Whom Scribe is Documenting (Include Credential): Meghna Turner MD Scribe Attestation: Nithya Child, scribed for Meghna Turner MD on 05/04/19 at 6335. Status of Scribe Document: Ready
--- OUTSIDE RECORDS SUMMARY | 2019-05-04 20:27 | XMS REPORT | Continuity of Care Document ---
:1950 External Reference #:[id number] Author Name Adwoa Rubio Care Team Providers Name Role Phone Ellie Vilchis MD Primary Care Physician Unavailable Payers Date Identification Numbers Payment Provider Subscriber Policy Number: [id number] [place] [employer] Mireya Paris [address] [place] [address] Family History Date Family Member(s) Observation Comments Father Coronary Artery Disease (CAD) Social History Type Date Description Comments Sex Unknown Tobacco Use Start: Unknown Heavy tobacco smoker (more than 10 cigarettes/day) Allergies, Adverse Reactions, Alerts Active Allergies Reaction Severity Comments Date Cefaclor Hives 05/01/2019 Erythromycin Hives 05/01/2019 Penicillin Hives 05/01/2019 Atorvastatin altered mental status 05/01/2019 Tetracycline Hives 05/01/2019 Sodium Hives 05/01/2019 Medications Active Medications SIG Qnty Indications Ordering Provider Date Metoprolol Succinate ER 1 by mouth 90tabs Jose A Frost, 04/26/2019 every day MaDmeon, FACC, FSCAI 25mg Tablets ER 24HR Albuterol Sulfate 2 puffs every 4 Unknown Powder hours as needed Aspir-Low 1 by mouth Unknown 81mg Tablets DR every day Trulicity inject 0.75mg Unknown 0.75mg/0.5ML once a week Solution Pen-Inject Fluticasone Propionate 2 sprays to Unknown Nasal [place] each nare daily 50mcg/Act Suspension Loratadine once a day by Unknown 10mg Capsules mouth Pantoprazole Sodium 1 by mouth Unknown 40mg every day Tablets DR Nitroglycerin 1 sl q5mins x3 Unknown 0.4mg Tablets as needed for Sub chest pain Simvastatin 1 by mouth Unknown 80mg Tablets every day Brilinta 1 tab by mouth Unknown 90mg Tablets twice a day Procedures Date Code Description Status 04/24/2019 61913 ECHO Transthorasic Realtime 2D W Doppler & Color Flow Hosp Completed 04/23/2019 81011 Left Heart Cath. Incl S/I Coronaries, Angio S/I V Gram If Completed Done 04/23/2019 65031 Revascularization Acute Total/Subtotal Occlusion Completed Encounters Type Date Location Provider Dx Diagnosis Office Visit 04/26/2019 [facility] Jose A Frost, I21.19 Stemi involving 11:53a Of Edge Cutter AT [facility], [facility], ot coronary FSCAI artery of inferior wall I25.10 [facility] heart disease of [place] coronary artery w/o ang pctrs Z98.61 Coronary angioplasty status Office Visit 04/25/2019 11:57a [facility] Jose A Frost, I21.19 Stemi involving Of Edge Cutter AT [facility], [facility], ot coronary FSCAI artery of inferior wall I25.10 Athscl heart disease of [place] coronary artery w/o ang pctrs Z98.61 Coronary angioplasty status Office Visit 04/23/2019 11:51a [facility] Jose A Frost, R07.9 Chest pain, Of Edge Cutter AT [facility], unspecified FSCAI I21.19 Stemi involving oth coronary artery of inferior wall I25.10 Athscl heart disease of [place] coronary artery w/o ang pctrs
--- OUTSIDE RECORDS SUMMARY | 2019-05-04 20:27 | XMS REPORT | Continuity of Care Document ---
:1950 External Reference #:[id number] Author Name Adwoa Rubio Care Team Providers Name Role Phone Ellie Vilchis MD Primary Care Physician Unavailable Payers Date Identification Numbers Payment Provider Subscriber Policy Number: [id number] [place] [employer] Mireya Paris [address] [place] [address] Family History Date Family Member(s) Observation Comments [...] 90tabs Jose A Frost, 04/26/2019 every day MDameon, FACC, FSCAI 25mg Tablets ER 24HR Albuterol Sulfate 2 puffs every 4 Unknown Powder hours as needed Aspir-Low 1 by mouth Unknown 81mg Tablets DR every day Trulicity inject 0.75mg Unknown 0.75mg/0.5ML once a week Solution Pen-Inject Fluticasone Propionate 2 sprays to Unknown Nasal [place] each nare daily 50mcg/Act Suspension Loratadine once [...] day Procedures Date Code Description Status 04/24/2019 34653 ECHO Transthorasic Realtime 2D W Doppler & Color Flow Hosp Completed 04/23/2019 29960 Left Heart Cath. 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 [facility], ot coronary FSCAI artery of inferior wall I25.10 Athscl heart disease of [place] coronary artery w/o ang pctrs Z98.61 Coronary angioplasty status Office Visit 04/25/2019 11:57a [facility] Jose A Frost, I21.19 Stemi involving 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
--- OUTSIDE RECORDS SUMMARY | 2019-05-04 20:28 | XMS REPORT | Continuity of Care Document ---
:1950 External Reference #:[id number] Author Name Adwoa Rubio Care Team Providers Name Role Phone Ellie Vilchis MD Primary Care Physician Unavailable Payers Date Identification Numbers Payment Provider Subscriber Policy Number: [id number] [place] [employer] Mireya Paris [address] [place] [address] Family History Date Family Member(s) Observation Comments [...] 90tabs Jose A Frost, 04/26/2019 every day MDamoen, FACC, FSCAI 25mg Tablets ER 24HR Albuterol Sulfate 2 puffs every 4 Unknown Powder hours as needed Aspir-Low 1 by mouth Unknown 81mg Tablets DR every day Trulicity inject 0.75mg Unknown 0.75mg/0.5ML once a week Solution Pen-Inject Fluticasone Propionate 2 sprays to Unknown Nasal [place] each nare daily 50mcg/Act Suspension Loratadine once [...] day Procedures Date Code Description Status 04/24/2019 71748 ECHO Transthorasic Realtime 2D W Doppler & Color Flow Hosp Completed 04/23/2019 53766 Left Heart Cath. 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
[2019-05-04 21:17] LABS: ABS Basophils 0.2 10^3/ul (0-0.2); ABS Eosinophils 0.5 10^3/ul (0-0.6); ABS Monocytes 1.1 10^3/ul (0-0.8); ABS Neutrophils 8.9 10^3/ul (1.5-7.7); Eosinophil % 3.8 %; Hematocrit 40 % (35-47); Hemoglobin 13.3 g/dL (12.0-16.0); Lymphocyte % 21.8 %; Mean Corpuscular HGB Conc 33 g/dL (31-36); Mean Corpuscular Hemoglobin 30 pg (27-31); Mean Corpuscular Volume 90 fL (80-97); Mean Platelet Volume 9.7 fL (7.4-10.4); Platelet Count 327 10^3/uL (150-450); Red Blood Count 4.46 10^6 /uL (3.70-4.87); Red Cell Distribution Width 14 % (10-15); White Blood Count 13.7 10^3/uL (3.5-10.8)
[2019-05-04 21:27] LABS: INR 1.06 (0.82-1.09)
[2019-05-04 21:34] LABS: Albumin 3.5 g/dL (3.2-5.2); Albumin/Globulin Ratio 1.1 (1-3); BUN/Creatinine Ratio 21.5 (8-20); Calcium 8.9 mg/dL (8.6-10.3); EGFR African American 87.6 (>60); EGFR Non-African American 72.4 (>60); Globulin 3.1 g/dL (2-4); Magnesium 1.9 mg/dL (1.9-2.7); Potassium 4.2 mmol/L (3.5-5.0); Total Bilirubin 0.3 mg/dL (0.2-1.0); Total Protein 6.6 g/dL (6.4-8.9)
[2019-05-04 21:38] LABS: Troponin I 0.07 ng/mL (<0.04)
[2019-05-04] MEDS ORDERED: Acetaminophen TAB* 325 MG PO PRN (22:00)
[2019-05-04] MEDS ORDERED: Ondansetron INJ* 2 MG/ML VIAL IV PRN (22:00)
[2019-05-04] MEDS ORDERED: Albuterol HFA INHALER* 8 gm MDI INH PRN (22:34)
[2019-05-04] MEDS ORDERED: Ticagrelor* 90 MG TAB PO SCH (23:00)
[2019-05-04] MEDS ORDERED: Dextrose 50% Syringe 50 ML* 25 GM/50 ML SYRINGE IV PUSH PRN (23:13)
--- NOTE | 2019-05-05 01:29 | HP ---
CC: Dede Shearer NP; Dr. Ellie Vilchis * HISTORY AND PHYSICAL: DATE OF ADMISSION: 05/04/19 PROVIDER: Az Márquez NP. ATTENDING PHYSICIAN: Dr. Teresa Giles * (dictated by Az Márquez NP). PRIMARY CARE PHYSICIAN: Dede Shearer NP OUTPATIENT ROBOTIC WELDER: Dr. Ellie Vilchis at [facility]. CHIEF COMPLAINT: Chest pressure. HISTORY OF PRESENT ILLNESS: Ms. Paris is a 68-year-old female who presented to the ER today following an episode of chest pressure at home. Of note, Ms. Paris was admitted at [facility] from 04/23/19 through 04/26/19 with a diagnosis of late presentation ST-elevation inferior/posterior wall myocardial infarction, status post stent placement. Ms. Paris reports that she has not had any chest pain since returning home. She has been taking all of her medications as prescribed. Her blood sugars have been doing well, trending from 98 to 119. She has not been taking her previously dapagliflozin, as blood sugars have not been elevated. She denies missing any doses of her aspirin and Brilinta. She states that last week her pain was intense and describes it as radiating across her chest. Today, she describes a light pressure and states that this was "not pain," and there was no radiation. She states that she had been up and down doing various household activities but denies any strenuous activity. She sat down for about 10 to 15 minutes, and she states she must have dozed off. She heard the phone ringing and got up to answer it when she felt a cold sweat and some dizziness. She sat down and notes that she had some chest pressure for about 10 minutes. She states that this was not pain. She noted some shortness of breath, which she qualifies as saying she could not take a deep breath, but this went away quickly. She attributes this to possible heat exhaustion as her double wide was hot, and the air condition was not working. However, she communicated her symptoms and concerns to her children, who had her call EMS services for further evaluation. Other than this episode, she denies any recent fevers, cold, flu symptoms. She denies any weight gain, edema, palpitations, orthopnea. She denies any shortness of breath. She does not utilize oxygen, although she does endorse emphysema. No abdominal pain. No nausea, vomiting or diarrhea. She denies hematuria, dysuria, focal weakness, sensory loss, visual or hearing complaints, new joint pains or muscle pain, rashes, lesions. Here in the ER, she was evaluated. She has denied any further chest pain. She did receive aspirin en route, but has not taken any nitro today, even following the episode at home. She has not had any chest pain while she has been here in the ER. Her troponin is 0.07, which is down from previous troponins from last week which maxed out at 44.95. She was noted to have a mildly elevated white blood cell count and a BNP of 249. Given that she was recently admitted for STEMI, Hospital Medicine was consulted for admission. PAST MEDICAL HISTORY: 1. Hypertension. 2. Hyperlipidemia. 3. COPD. She states she has "emphysema" and asthma. 4. Osteoarthritis. 5. Non-insulin dependent diabetes mellitus. 6. Nicotine dependence, currently still smoking. HOME MEDICATIONS: 1. Loratadine 10 mg daily. 2. Fluticasone nasal spray 50 mcg 2 sprays to both nares daily. 3. Trulicity 0.75 mg subcu weekly. 4. Farxiga 5 mg q.a.m. This is currently on hold. 5. Aspirin 81 mg daily. 6. Albuterol 2 puffs inhaled q.4 hours p.r.n. 7. Brilinta 90 mg b.i.d. 8. Simvastatin 80 mg q. evening. 9. Pantoprazole 40 mg daily. 10. Nitroglycerin 0.4 mg sublingual q.5 minutes p.r.n. 11. Metoprolol succinate XL 25 mg daily. ALLERGIES: Include CEFACLOR, ERYTHROMYCIN, PENICILLIN, SODIUM, ATORVASTATIN, TETRACYCLINE. FAMILY HISTORY: She reports that her father had 5 MIs, and her mother had congestive heart failure. She had grandmother with diabetes and states that her sister of cancer at age 59 and her brother of liver cancer at age 62. SOCIAL HISTORY: She is a current smoker, still smoking, but states she has decreased to 6 to 8 cigarettes a day and is attempting to continue decreasing to cessation. She denies alcohol or drug use. She is retired. She lives by herself, but her kids live nearby. Her son, Bentley Paris is her surrogate decision maker and healthcare proxy. REVIEW OF SYSTEMS: A 14-point review of systems was completed. All pertinent positives and negatives as per the HPI. PHYSICAL EXAMINATION GENERAL: This is an older female seen sitting up in ED stretcher, in no acute distress. VITAL SIGNS: Temperature 97.8, heart rate 75, respiratory rate 18, blood pressure 120/77, and O2 saturation is 97%. HEENT: Head is atraumatic, normocephalic. Pupils are equal and round, and reactive to light and accommodation. Extraocular movements are intact. Oral mucosa is moist. NECK: Supple. No lymphadenopathy appreciated. No JVD noted. No carotid bruits appreciated. RESPIRATORY: Lungs are clear to auscultation bilaterally with no adventitious lung sounds. CARDIAC: Regular rate and rhythm with S1, S2 present and normal. No murmurs appreciated. ABDOMEN: Soft, nontender and nondistended with normoactive bowel sounds. MUSCULOSKELETAL: There is full range of motion in all 4 extremities. There is no clubbing or cyanosis. EXTREMITIES: No peripheral edema. Distal pulses are 2+ and intact. NEURO: She is alert and oriented x3. No focal deficits noted. Cranial nerves II through XII are grossly intact. Sensation is intact to light touch to lower extremities. SKIN: Warm and dry and appears grossly intact. PSYCH: Affect is appropriate. LABORATORY DATA AND DIAGNOSTIC STUDIES: CBC: WBC 13.7, hemoglobin 13.3, hematocrit 40, platelet count 327. INR 1.06. CMP: Sodium 140, potassium 4.2, chloride 108, carbon dioxide 26, BUN 17, creatinine 0.79, glucose 123, calcium 8.9. Magnesium 1.9, total bilirubin 0.3. AST 10, ALT 6, alk phos 76. Troponin 0.07, BNP 249, albumin 3.5. EKGs from previous admission and today were reviewed. There are Q-wave inversions in the inferior leads with minimal ST elevation that are similar to EKGs from admission last week. Old medical records were reviewed. ASSESSMENT AND PLAN: This is a 68-year-old female who presented today with an episode of chest pressure in the presence of a recent STEMI with stent placement. She will be admitted under observation to the cardiac floor with plans as follows. 1. Coronary artery disease, status post stent placement with transient chest pain. She will be admitted to the telemetry floor for further monitoring. Her initial troponin was 0.07 and we will continue trending trops as well as EKGs. I did review the plan of care as well as the patient's presentation, symptoms and treatment plan with Dr. Pinon, who was in agreement. He recommends continuing to trend trops and EKGs and if the patient remains symptom free and with no significant changes in trops or EKGs, she could go home. She already has a plan to follow up with primary medical administrator on Tuesday. Her story does sound consistent with a reaction to the extreme heat that was present today and she does not have air conditioning. She also does have chronic obstructive pulmonary disease. Given that she has recently had a significant cardiac episode, we will monitor overnight. We will also continue the patient's home aspirin and Brilinta, as well as simvastatin and metoprolol. 2. Mild leukocytosis, may be secondary to episode from earlier today. We will repeat CBC tomorrow. 3. Hypertension. Blood pressure is well controlled. Continue home metoprolol. 4. Type 2 diabetes. She is on Trulicity only at this time and has been holding her dapagliflozin, which we will continue. Her blood sugars have been stable. We will check fingerstick blood glucose prior to meals, but hold on coverage at this time unless she is elevated. Lispro sliding scale as ordered. 5. Hyperlipidemia. Continue atorvastatin. 6. Chronic obstructive pulmonary disease, not in acute exacerbation. Continue p.r.n. albuterol. 7. Nicotine dependence. She is advised to stop smoking. She is working on decreasing her nicotine use. 8. FEN. She is ordered a consistent carbohydrate, heart healthy diet. 9. DVT prophylaxis. She is ordered subcu heparin. 8. Code status. She is a full code. 9. Disposition. Anticipate discharge to home when medically stable. TIME SPENT: Approximately 60 minutes was spent on this admission which includes more than half of the time being [id number] with the patient, obtaining history and physical, performing the physical examination, and reviewing the plan of care. Plan of care was also reviewed with my attending, Dr. Giles, who is in agreement. AZ MÁRQUEZ, NUCLEAR LICENSING ENGINEER [id number]/[facility] #: [id number] ABDIRASHID
[2019-05-05] MEDS: Heparin VIAL(*) 5000 UNITS/ML VIAL (FIVE THOUSAND) SUBCUT SCH ×2 (01:55→05:35)
[2019-05-05 05:28] LABS: ABS Basophils 0.1 10^3/ul (0-0.2); ABS Eosinophils 0.5 10^3/ul (0-0.6); ABS Lymphocytes 3.5 10^3/ul (1.0-4.8); ABS Neutrophils 10.5 10^3/ul (1.5-7.7); Eosinophil % 3.3 %; Hematocrit 40 % (35-47); Hemoglobin 13.1 g/dL (12.0-16.0); Lymphocyte % 22.1 %; Mean Corpuscular HGB Conc 33 g/dL (31-36); Mean Corpuscular Hemoglobin 30 pg (27-31); Mean Corpuscular Volume 90 fL (80-97); Mean Platelet Volume 10.1 fL (7.4-10.4); Platelet Count 310 10^3/uL (150-450); Red Blood Count 4.37 10^6 /uL (3.70-4.87); Red Cell Distribution Width 14 % (10-15); White Blood Count 15.7 10^3/uL (3.5-10.8)
[2019-05-05 05:59] LABS: Troponin I 0.07 ng/mL (<0.04)
[2019-05-05] MEDS ORDERED: Insulin LISPRO* 1 UNITS UNIT SUBCUT SCH (07:30)
[2019-05-05 08:52] LABS: Troponin I 0.06 ng/mL (<0.04)
[2019-05-05] MEDS ORDERED: Pantoprazole TAB * 40 MG TAB PO SCH (09:00)
[2019-05-05] MEDS ORDERED: Fluticasone NASAL SPRAY 50MCG* 16 gm SPRAY BTL BOTH NARES SCH (09:00)
[2019-05-05] MEDS ORDERED: Cetirizine* 10 MG TAB PO SCH (09:00)
[2019-05-05] MEDS ORDERED: Metoprolol Succinate XL TAB* 25 MG PO SCH (09:00)
[2019-05-05] MEDS ORDERED: Aspirin EC TAB* 81 MG TAB.EC PO SCH (09:00)
[2019-05-05] MEDS ORDERED: Ticagrelor* 90 MG TAB PO SCH (09:00)
[2019-05-05 09:20] VITALS: BP 122/59
[2019-05-05] MEDS ORDERED: CMCS:Simvastatin TAB(NF) 20 MG TAB PO SCH (17:00)
--- NOTE | 2019-05-05 17:48 | DS ---
CC: Dede Shearer NP; Dr. Ellie Vilchis, [facility] DISCHARGE SUMMARY: DATE OF ADMISSION: 05/04/19 DATE OF DISCHARGE: 05/05/19 PRIMARY CARE PHYSICIAN: Dede Shearer NP SHIFT ENGINEER: Dr. Ellie Vilchis, [facility] DISCHARGE DIAGNOSIS: Chest pressure, acute coronary syndrome ruled out. SECONDARY DIAGNOSES: 1. Coronary artery disease status post recent admission for ST-elevation myocardial infarction statu s post stent placement to the circumflex. 2. Type 2 diabetes. 3. Chronic obstructive pulmonary disease. 4. Osteoarthritis. 5. Tobacco abuse. MEDICATION LIST: 1. Albuterol HFA 2 puffs inhaled q.4 hours p.r.n. shortness of breath and wheezing. 2. Aspirin 81 mg p.o. daily. 3. Farxiga 5 mg p.o. daily. 4. Trulicity 0.75 mg subcutaneously weekly. 5. Fluticasone nasal spray 2 sprays to both nares daily. 6. Loratadine 10 mg p.o. daily. 7. Metoprolol succinate 25 mg p.o. daily. 8. Nitroglycerin 0.4 mg sublingual q.5 minutes p.r.n. chest pain. 9. Pantoprazole 40 mg p.o. daily. 10. Simvastatin 80 mg p.o. daily. 11. Brilinta 90 mg p.o. b.i.d. New medication: Amlodipine 2.5 mg p.o. daily. HOSPITAL COURSE: Mrs. Paris is a 68-year-old female with a past medical history as stated above th at presented to the emergency room with complaints of chest pressure. She is very clear that her sym ptoms were not pain and she thought that those symptoms were associated with excessive heat in her do uble wide as the was not working, but as she had a recent heart attack, she came to the emergency room for further evaluation. For more details about her presentation, I refer you to her history and physical. The patient's EKG showed T wave inversions that appeared improved from her prior admission and the ST elevations were resolved. The patient had serial troponins 0.07, 0.07, 0.06. Her case was discussed with Cardiology (Dr. Pinon) and I updated him on the patient's uneventful night and troponin result. He agreed that the patient could be discharged home and recommended addin g amlodipine 2.5 mg daily as a vasodilator to her regimen. I relayed this information to the patient but she states that she has an appointment with her vice president medical affairs on 05/07/19 and she would rather ta lk to her first before adding another pill to her regimen. Regarding her diabetes, the patient states that her sugar has been well controlled at home but that s he has been taking both Farxiga and Trulicity. The patient was once again advised about the importance of tobacco cession considering her history of COPD and recent myocardial infarctions, but she will need further encouragement as outpatient. She is medically stable. She will be discharged home today. PHYSICAL EXAMINATION: Vital Signs: Temperature 98.8, heart rate is 76, respiratory rate is 16, oxyg en saturation is 97% on room air, blood pressure 122/59. General: The patient is an elderly lady th at appears older than stated age, sitting up in bed in no acute distress. CVS: Normal S1, S2. Regu lar rate and rhythm. Chest: Breath sounds bilaterally diminished with no added sounds. Neuro: She is alert and oriented x3. Able to move all 4 extremities. DIET: Heart-healthy consistent carb diet. ACTIVITY: As tolerated. DISPOSITION: To home. STATUS WHILE IN THE HOSPITAL: Observation. CONDITION AT THE TIME OF DISCHARGE: Fair. Please keep in mind this is a summarized version of this patient's hospital stay. If you need more in formation, please feel free to call me at [phone] or please obtain full medical records. The patient was encouraged to keep her appointment with Dr. Vilchis on 05/07/19 at 11:20 a.m. TIME SPENT: Approximately 40 minutes were spent to complete this discharge. [id number]/[facility] [place] #: [id number]
== END 2019-05-05 10:19 | disposition home or self-care (01) ==
LOC: ED 19:52 → MEDTELE 22:00
PROVIDERS: ADMIT Internal Medicine; ATTEND Internal Medicine
DX: R07.9 Chest pain, unspecified (principal); I25.10 Atherosclerotic heart disease of native coronary artery without angina pectoris; E11.9 Type 2 diabetes mellitus without complications; J44.9 Chronic obstructive pulmonary disease, unspecified; M19.90 Unspecified osteoarthritis, unspecified site; I10 Essential (primary) hypertension; E78.5 Hyperlipidemia, unspecified; F17.210 Nicotine dependence, cigarettes, uncomplicated; Z79.899 Other long term (current) drug therapy; Z79.84 Long term (current) use of oral hypoglycemic drugs; Z79.82 Long term (current) use of aspirin; R06.02 Shortness of breath
CPT/HCPCS: 36415; 80053; 83735; 83880; 84484; 85025; 85610; 85730; 93005; 96372; 99284; A9270-GY; G0378; J1644